=== PATIENT | male | born 1995 | race Caucasian/White ===

== ENCOUNTER 2022-03-24 10:01 | Emergency (ER) | payer OTHER, SELFPAY ==
--- NOTE | ~2022-03-24 | US_ITS ---
EXAMINATION: US SCROTUM CLINICAL INFORMATION: Pain. COMPARISON: None TECHNIQUE: A sonogram of the scrotum was performed assessing melgar-scale appearance and color Doppler flow. Spectral Doppler analysis of the arterial and venous flow were performed in the testes bilaterally. FINDINGS: RIGHT: Right testicle measures 3.9 x 2.3 x 2.9 cm, volume 13.2 mL. No focal testicular parenchymal lesions are visualized. Spectral Doppler analysis of the arterial and venous flow is normal in the right testis. Right epididymal head is normal in size. No right hydrocele or varicocele is seen. Right epididymal Doppler flow is normal. LEFT: Left testicle measures 3.8 x 1.8 x 2.6 cm, volume 9.9 mL. No focal testicular parenchymal lesions are visualized. Spectral Doppler analysis of the arterial and venous flow is normal in the left testis. Left epididymal head is normal in size. There is dilatation of the left pampiniform plexus with veins measuring up to 3.4 mm in diameter, worse with Valsalva consistent with a varicocele. No left hydrocele is seen. Left epididymal Doppler flow is normal. US/US scrotum IMPRESSION: Left-sided varicocele. Otherwise normal scrotal ultrasound.
--- NOTE | ~2022-03-24 | CT_ITS ---
EXAMINATION: CT ABDOMEN AND PELVIS WITHOUT CONTRAST CLINICAL INFORMATION: Left lower quadrant and left testicular pain. Patient kidney stone. COMPARISON: Scrotal ultrasound earlier today TECHNIQUE: Multidetector volumetric imaging was performed from the superior aspect of the liver through the pubic symphysis. Sagittal and coronal reformatted images were obtained on the technologist's workstation. This CT examination was performed using dose optimization techniques as appropriate, variously including the following: *Automated exposure control *Adjustment of mA and/or kV according to patient size (this includes techniques or standardized protocols for targeted exams where dose is matched to indication/reason for exam; i.e. extremities or head) *Use of iterative reconstruction technique DLP: 345 mGy-cm FINDINGS: Visualized lung bases are well aerated. The liver demonstrates normal size, contour and attenuation. The gallbladder is normal in appearance. The pancreas, spleen and adrenal glands are unremarkable. Symmetrically sized kidneys. No renal calculi or hydronephrosis of either kidney. Normal caliber loops of small and large bowel. The appendix is not clearly visualized, however, there are no focal inflammatory changes noted within the right lower abdomen. Normal caliber abdominal aorta. The bladder is normal in appearance. The prostate gland is normal in size. No gross free pelvic fluid. No inguinal lymphadenopathy. A few small pelvic calcifications are felt to be vascular in nature. No acute osseous abnormality. CT/CT abdomen pelvis wo IV con IMPRESSION: -No renal calculi or hydronephrosis of either kidney. Fleischner guidelines were followed.
[2022-03-24 10:04] VITALS: BP 132/71; PULSE 77; RESP 19; TEMP 36.6; O2SAT 98; BMI 25.0
[2022-03-24 10:21] LABS: MANUAL DIFF FLAG NO
[2022-03-24 10:30] LABS: Basophils Percent Auto 0.8 % (0-2); Eosinophils Absolute Auto 0.1 X10*3/uL (0.0-0.4); Eosinophils Percent Auto 2.8 % (0-4); Hematocrit 47.7 % (42.0-52.0); Imm Gran Abs Auto 0.01 X10*3/uL (0.00-0.03); Imm Gran Pct Auto 0.3 % (0.0-0.4); Lymphocytes Absolute Auto 1.8 X10*3/uL (1.2-4.9); Lymphocytes Percent Auto 47.2 % (20-40); Mean Corpuscular HGB Conc 33.5 g/dl (31.0-36.0); Mean Corpuscular Hemoglobin 29.4 pg (27.0-33.0); Mean Corpuscular Volume 87.5 fL (80.0-98.0); Mean Platelet Volume 12.3 fL (9.4-12.4); Monocytes Absolute Auto 0.4 X10*3/uL (0.1-1.2); Monocytes Percent Auto 10.4 % (2-11); Neutrophils Absolute Auto 1.5 x10*3/uL (2.0-8.3); Neutrophils Percent Auto 38.5 % (45-73); Platelet Count 145 X10*3/uL (160-400); Red Blood Count 5.45 X10*6/uL (4.60-5.80); Red Cell Distribution Width 12.2 % (11.0-16.0); White Blood Count 3.9 X10*3/uL (4.8-10.8)
[2022-03-24 10:34] LABS: Appearance Urine Turbid; Color Urine Yellow; Glucose Urine UA Negative (Negative); Leukocyte Esterase Urine Negative (Negative); Nitrite Urine Negative (Negative); PH 7.5 (5.0-9.0); Urine Blood Negative (Negative); Urine Ketones 15 mg/dL (Negative); Urine Protein Negative (Neg-Trace)
[2022-03-24 10:39] LABS: Anion Gap 14 (12-20); Blood Urea Nitrogen 14 mg/dL (9-16); Calcium 9.7 mg/dL (8.4-10.2); Carbon Dioxide 25 mmol/L (22-29); Chloride 106 mmol/L (96-108); Estimated Glomerular Filt Rate > 60; Glucose Random 96 mg/dL (60-115); Potassium 5.3 mmol/L (3.3-5.1); Sodium 140 mmol/L (135-145)
[2022-03-24 11:16] VITALS: BP 117/63; PULSE 51; RESP 18; TEMP 36.6; O2SAT 99
--- NOTE | 2022-03-24 11:26 | ED.MALEGU ---
HPI - Male Genitourinary General Chief complaint: Urogenital-Male Stated complaint: Abd pain Time Seen by Provider: 03/24/22 11:04 Source: patient Mode of arrival: ambulatory Limitations: no limitations History of Present Illness HPI Narrative: 26 yold male presents to the ED for intermittent left testicular pain and left groin for the past 3 days. Patient admits to heavy weightlifting. Patient denies any mass or bulge in the groin and testicular region. Patient denies any penile lesions, penile discharge, flank pain, fever, chills, or any recent trauma to the testicular area. Related Data Previous Rx's Medication Instructions Recorded naproxen 500 mg tablet 500 mg PO BID PRN pain 7 days #14 03/24/22 tabs Allergies Allergy/AdvReac Type Severity Reaction Status Date / Time No Known Allergies Allergy Unverified 12/23/19 16:21 Review of Systems Review of Systems: left testicular pain Yes all other systems are reviewed and are negative PMFSH Social History Social History Advance Directives: No Advance Directives Information Provided: No Physical Exam Vital Signs: Vital Signs: Last Vital Signs Temp 97.7 F 03/24/22 15:00 Pulse 53 03/24/22 15:00 Resp 16 03/24/22 15:00 BP 112/65 03/24/22 15:00 Pulse Ox 98 03/24/22 15:00 O2 Del Method 03/24/22 15:00 BMI result Body Mass Index 25.0 Const: General: cooperative, healthy appearing, comfortable, no acute distress, well developed, alert, awake and Physically active Orientation/consciousness: oriented to person, oriented to place, oriented to time and patient oriented x3 HEENT: Head: Yes normal to inspection, Yes No palpable skull fracture present, Yes normocephalic, Yes atraumatic and No abrasion Eyes: General: appearance normal, both eyes and all related structures Neck: Neck: Yes normal visual inspection, Yes full ROM, Yes no lymphadenopathy, Yes no meningeal signs, Yes trachea midline, Yes supple, No anterior neck swelling and No tender Chest: Chest palpation & inspection: normal inspection of the chest and normal palpation of entire chest wall Resp: Effort & Inspection: normal respiratory effort and able to speak in complete sentences Auscultation: clear to auscultation bilaterally Cardio: Jugular venous distension: no JVD Heart sounds: S1 normal heart sound present and S2 normal heart sound present GI: Inspection: Yes normal to inspection and No abdominal wall ecchymosis Palpation (GI): Soft to palpation, not firm, nontender, no guarding and not rigid : Other: Negative for any testicular/scrotal tenderness swelling or redness. Negative for any penile discharge or penile lesions. Negative for mass or bulging on palpation of testicles or groin on coughing test. General: No CVA tenderness and Yes no CVA tenderness Penis: normal penis and circumcised Meatus: meatus normal Scrotum: scrotum normal Testes: Testes normal Back/Spine/Pelvis: Back: no CVA tenderness, No CVA tenderness and No back tenderness Skin: General skin exam: no rashes or lesions noted and elasticity normal Neuro: General: oriented to person, oriented to place, oriented to time, patient oriented x3, gait normal, tone normal, no meningeal signs and no focal motor deficits Cranial nerves: Yes CN's II-XII intact bilaterally Extrem: General: Yes normal to inspection and Yes full ROM Psych: Appearance: grossly normal, well kempt and not disheveled Course Course Course Narrative: Labs, scrotal ultrasound, UA, CT angio ordered. Reevaluation(s) Reevaluation #1: Potassium is 5.3. UA normal. Testicular ultrasound shows left varicocele. labs are anormal Time: 11:00 Reevaluation #2: Patient wanted to have CT scan of the abdomen due to left lower quadrant abdominal pain and testicular pain. Patient presently has no abdominal pain but it comes and go. Abdominal exam nontender on palpation but patient when CT scan officially rule out kidney stones. CT scan ordered. Patient did not want IV fluids. Patient will hydrate at home. Time: 12:23 Medications Administered Discontinued Medications Generic Name Dose Route Start Last Admin Trade Name Freq PRN Reason Stop Dose Admin Sodium Chloride 1,000 mls @ 999 mls/hr 03/24/22 11:40 03/24/22 12:21 Ns IV 03/24/22 12:40 Not Given .Q1H1M STA Medical Decision Making Medical Decision Making MDM Narrative: 26-year-old male presents to ED for left testicular pain and states left lower abdominal pain. Labs UA imaging normal. History physical exam does not indicate kidney stones, colitis, hernia, epididymitis, torsion. No clinical signs for STD. Admission not indicated. No further workup needed. No observation Differential Diagnosis Differential Diagnoses: The differential diagnosis associated with the presentation includes (Torsion, epididymitis, kidney stones,) Lab Data MDM Lab Attestation statement: I reviewed the patient's lab results. EKG does shows ST repolarization. Patient refused IV hydration will prefer oral hydration at home. Potassium REsults discussed with Dr. Deidre calvo states mostly hemolyzed and no need for repeat potassium or potassium medication protocol. patient informed not to eat pottasium foodds such as bannana, spinach, and etc. Result Diagrams: 03/24/22 10:15 03/24/22 10:15 Labs: Lab Results 03/24/22 03/24/22 03/24/22 Range/Units 10:15 10:15 10:15 WBC 3.9 L (4.8-10.8) X10*3/uL RBC 5.45 (4.60-5.80) X10*6/uL Hgb 16.0 (14.0-18.0) g/dl Hct 47.7 (42.0-52.0) % MCV 87.5 (80.0-98.0) fL MCH 29.4 (27.0-33.0) pg MCHC 33.5 (31.0-36.0) g/dl RDW 12.2 (11.0-16.0) % Plt Count 145 L (160-400) X10*3/uL MPV 12.3 (9.4-12.4) fL Immature Gran % (Auto) 0.3 (0.0-0.4) % Neut % (Auto) 38.5 L (45-73) % Lymph % (Auto) 47.2 H (20-40) % [place] % (Auto) 10.4 (2-11) % Eos % (Auto) 2.8 (0-4) % Baso % (Auto) 0.8 (0-2) % Lymph # (Auto) 1.8 (1.2-4.9) X10*3/uL [place] # (Auto) 0.4 (0.1-1.2) X10*3/uL Eos # (Auto) 0.1 (0.0-0.4) X10*3/uL Baso # (Auto) 0.0 (0.0-0.2) X10*3/uL Abs Immat Gran (auto) 0.01 (0.00-0.03) X10*3/uL Absolute Neuts (auto) 1.5 L (2.0-8.3) x10*3/uL Absolute Nucleated RBC 0.000 (0.0-0.012) X10*3/uL Nucleated RBC % (auto) 0.0 (0.0-0.2) /100WBC Sodium 140 (135-145) mmol/L Potassium 5.3 H (3.3-5.1) mmol/L Chloride 106 (96-108) mmol/L Carbon Dioxide 25 (22-29) mmol/L Anion Gap 14 (12-20) BUN 14 (9-16) mg/dL Creatinine 0.96 (0.5-1.4) mg/dL Estim Creat Clear Calc 108.0 Estimated GFR > 60 Random Glucose 96 (60-115) mg/dL Calcium 9.7 (8.4-10.2) mg/dL Urine Color Yellow Urine Appearance Turbid Urine pH 7.5 (5.0-9.0) Ur Specific [place] 1.020 (1.005-1.025) Urine Protein Negative (Neg-Trace) mg/dL Urine Glucose (UA) Negative (Negative) mg/dL Urine Ketones 15 (Negative) mg/dL Urine Blood Negative (Negative) Urine Nitrite Negative (Negative) Ur Leukocyte Esterase Negative (Negative) Chlam trachomat DNA PCR (Not Detect.) N.gonorrhoeae DNA (PCR) (Not Detect.) 03/24/22 Range/Units 12:02 WBC (4.8-10.8) X10*3/uL RBC (4.60-5.80) X10*6/uL Hgb (14.0-18.0) g/dl Hct (42.0-52.0) % MCV (80.0-98.0) fL MCH (27.0-33.0) pg MCHC (31.0-36.0) g/dl RDW (11.0-16.0) % Plt Count (160-400) X10*3/uL MPV (9.4-12.4) fL Immature Gran % (Auto) (0.0-0.4) % Neut % (Auto) (45-73) % Lymph % (Auto) (20-40) % [place] % (Auto) (2-11) % Eos % (Auto) (0-4) % Baso % (Auto) (0-2) % Lymph # (Auto) (1.2-4.9) X10*3/uL [place] # (Auto) (0.1-1.2) X10*3/uL Eos # (Auto) (0.0-0.4) X10*3/uL Baso # (Auto) (0.0-0.2) X10*3/uL Abs Immat Gran (auto) (0.00-0.03) X10*3/uL Absolute Neuts (auto) (2.0-8.3) x10*3/uL Absolute Nucleated RBC (0.0-0.012) X10*3/uL Nucleated RBC % (auto) (0.0-0.2) /100WBC Sodium (135-145) mmol/L Potassium (3.3-5.1) mmol/L Chloride (96-108) mmol/L Carbon Dioxide (22-29) mmol/L Anion Gap (12-20) BUN (9-16) mg/dL Creatinine (0.5-1.4) mg/dL Estim Creat Clear Calc Estimated GFR Random Glucose (60-115) mg/dL Calcium (8.4-10.2) mg/dL Urine Color Urine Appearance Urine pH (5.0-9.0) Ur Specific [place] (1.005-1.025) Urine Protein (Neg-Trace) mg/dL Urine Glucose (UA) (Negative) mg/dL Urine Ketones (Negative) mg/dL Urine Blood (Negative) Urine Nitrite (Negative) Ur Leukocyte Esterase (Negative) Chlam trachomat DNA PCR NOT DETECTED (Not Detect.) N.gonorrhoeae DNA (PCR) NOT DETECTED (Not Detect.) Independent Interpretation I performed an independent interpretation of an: EKG Interpretation: Sinus bradycardia. Reticular 54. MS interval 152. QRS 106. QTC 407. Negative STEMI Radiology Impression Discussion of test interpretation with radiology: I have reviewed the radiologist's reading. Radiologist Impression: Patient: Patrice Burris MR#: [id number] : 1995 Acct:[id number] Age/Sex: 26 / M ADM Date: 03/24/22 Loc: HO.ED Attending Dr: Ordering Physician: Buzz Chapman Date of Service: 03/24/22 Procedure(s): CT abdomen pelvis wo IV con Accession Number(s): [id number] cc: Buzz Chapman~ EXAMINATION: CT ABDOMEN AND PELVIS WITHOUT CONTRAST? CLINICAL INFORMATION: Left lower quadrant and left testicular pain. Patient kidney stone.? COMPARISON: Scrotal ultrasound earlier today? TECHNIQUE: Multidetector volumetric imaging was performed from the superior aspect of the liver through the pubic symphysis. Sagittal and coronal reformatted images were obtained on the technologist's workstation.? This CT examination was performed using dose optimization techniques as appropriate, variously including the following: *Automated exposure control *Adjustment of mA and/or kV according to patient size (this includes techniques or standardized protocols for targeted exams where dose is matched to indication/reason for exam; i.e. extremities or head) *Use of iterative reconstruction technique DLP: 345 mGy-cm FINDINGS: Visualized lung bases are well aerated. The liver demonstrates normal size, contour and attenuation. The gallbladder is normal in appearance. The pancreas, spleen and adrenal glands are unremarkable. Symmetrically sized kidneys. No renal calculi or hydronephrosis of either kidney. Normal caliber loops of small and large bowel. The appendix is not clearly visualized, however, there are no focal inflammatory changes noted within the right lower abdomen. Normal caliber abdominal aorta. The bladder is normal in appearance. The prostate gland is normal in size. No gross free pelvic fluid. No inguinal lymphadenopathy. A few small pelvic calcifications are felt to be vascular in nature. No acute osseous abnormality. CT/CT abdomen pelvis wo IV con IMPRESSION: -No renal calculi or hydronephrosis of either kidney. ? Fleischner guidelines were followed. Dictated By: Froylan Gillespie MD Signed By: <Electronically signed by Froylan Gillespie MD in OV> 03/24/22 1450 DD/ 1417 TD/TT:? Orientation & Mobility Specialist: [address] [id number] Ultrasound Report Signed Patient: Patrice Burris MR#: [id number] : 1995 Acct:[id number] Age/Sex: 26 / M ADM Date: 03/24/22 Loc: HO.ED Attending Dr: Ordering Physician: Aleena Torres NP Date of Service: 03/24/22 Procedure(s): US scrotum Accession Number(s): [id number] cc: Aleena Torres NP~ EXAMINATION: US SCROTUM CLINICAL INFORMATION: Pain. COMPARISON: None TECHNIQUE: A sonogram of the scrotum was performed assessing melgar-scale appearance and color Doppler flow. Spectral Doppler analysis of the arterial and venous flow were performed in the testes bilaterally. FINDINGS: RIGHT: Right testicle measures 3.9 x 2.3 x 2.9 cm, volume 13.2 mL. No focal testicular parenchymal lesions are visualized. Spectral Doppler analysis of the arterial and venous flow is normal in the right testis. Right epididymal head is normal in size. No right hydrocele or varicocele is seen. Right epididymal Doppler flow is normal. LEFT: Left testicle measures 3.8 x 1.8 x 2.6 cm, volume 9.9 mL. No focal testicular parenchymal lesions are visualized. Spectral Doppler analysis of the arterial and venous flow is normal in the left testis. Left epididymal head is normal in size. There is dilatation of the left pampiniform plexus with veins measuring up to 3.4 mm in diameter, worse with Valsalva consistent with a varicocele. No left hydrocele is seen. Left epididymal Doppler flow is normal. US/US scrotum IMPRESSION: Left-sided varicocele. Otherwise normal scrotal ultrasound. Dictated By: n Signed By: <Electronically signed by n in OV> 03/24/22 1104 DD/ 1046 TD/TT:? Orientation & Mobility Specialist: ELIE Discharge Plan Discharge Clinical Impression: Left varicocele, Pain in left testicle, Abdominal pain Patient Disposition: Home, Self-Care Instructions: Hyperkalemia (ED), Varicocele (ED), Testicle Pain (ED), Abdominal Pain (ED), Scrotal Pain (ED) Additional Instructions: Return to the ED for worsening testicular pain, abdominal pain, blood in the urine, increased urinary frequency, flank pain, fever, chills, bulging/swelling/mass and genital or groin or abdominal area, or any other concerning symptoms. Please follow-up with primary care provider and urologist Prescriptions: New naproxen 500 mg tablet 500 mg PO BID PRN (Reason: pain) 7 Days Qty: 14 0RF Referrals: [facility] [Provider Group] (Left testicular pain. Varicocele) Interventions: ED Discharge Assessment Last Done: 03/24/22 15:26 Discharge Date/Time: 03/24/22 15:26 Print Language: Occitan
--- NOTE | 2022-03-24 11:38 | ECG_ITS ---
Test Reason : hyerkalemia Blood Pressure : / mmHG Vent. Rate : 054 BPM Atrial Rate : 054 BPM P-R Int : 152 ms QRS Dur : 106 ms QT Int : 430 ms P-R-T Axes : 074 092 052 degrees QTc Int : 407 ms Artifact in the tracing Sinus bradycardia Rightward axis ST elevation, consider early repolarization, pericarditis, or injury Abnormal ECG No previous ECGs available Referred By: Buzz Chapman Electronically Signed By:Bartolome Nelson
--- NOTE | 2022-03-24 12:23 | PC.NURSE ---
UNSUCCESSFUL IV ATTEMPT X 2 , PT DOES NOT WANT AN IV NOW, PA TO BEDSIDE AND CT SCAN ORDERED, PT W NAD, NO PAIN AT THIS TIME, SKIN WPD
[2022-03-24 13:51] VITALS: BP 113/59; PULSE 51; RESP 20; TEMP 36.6; O2SAT 97
[2022-03-24 14:01] LABS: CT PCR NOT DETECTED (Not Detect.); NG PCR NOT DETECTED (Not Detect.)
[2022-03-24 15:00] VITALS: BP 112/65; PULSE 53; RESP 16; TEMP 36.5; O2SAT 98
== END 2022-03-24 15:26 | disposition home or self-care (01) ==
PROVIDERS: Physician Assistant; Emergency Provider Emergency Medicine
DX: N50.812 Left testicular pain (principal); I86.1 Scrotal varices; R10.32 Left lower quadrant pain; E87.5 Hyperkalemia; Z79.899 Other long term (current) drug therapy
CPT/HCPCS: 36415; 74176; 76870; 80048; 81003; 85025; 87491; 87591; 93005; 99284